=== PATIENT | female | born 1940 | race Caucasian/White ===

== ENCOUNTER 2022-03-02 13:48 | Outpatient (CLI) | payer MEDICARE, OTHER, SELFPAY ==
[2022-03-02 17:47] LABS: Hemoglobin A1C 5.7 % (<5.7)
[2022-03-02 19:05] LABS: Vitamin D 25 Hydroxy 60.9 ng/mL
[2022-03-05 12:12] LABS: Triiodothyronine T3 Free 2.2 pg/mL (2.3-4.2)
== END 2022-03-02 13:49 | disposition home or self-care (01) ==
LOC: ANHWCLAB 13:52
PROVIDERS: PCP Family Medicine; Visit Provider Internal Medicine Endocrinology, Diabetes & Metabolism
DX: E04.9 Nontoxic goiter, unspecified (principal); M85.80 Other specified disorders of bone density and structure, unspecified site; R79.89 Other specified abnormal findings of blood chemistry; R73.03 Prediabetes
CPT/HCPCS: 36415; 82306; 83036; 84439; 84443; 84481

== ENCOUNTER 2025-03-31 09:55 | Outpatient (CLI) | payer MEDICARE, OTHER, SELFPAY ==
--- NOTE | ~2025-03-31 | XR_ITS ---
EXAMINATION: XR lg joint inject/asp w image DATE: 03/31/2025 11:39 INDICATION: Right hip pain TECHNIQUE: A time-out was performed to verify the patient's name, date of , and procedure to b e performed. The procedure including the risks, benefits, and alternatives was discussed with the pat ient. Risks discussed included bleeding and infection. The patient understood the risks and agreed to proceed. The skin overlying the right joint was prepped and draped in usual sterile fashion. Anest hetic was administered with 1% lidocaine subcutaneously. A 22 G needle was advanced under fluoroscop ic guidance into the joint. Injection of 1 mL of Omnipaque 240 confirmed intra-articular position of the needle. Subsequently, injectate consisting of 5 mm a 3:2 mixture of 1% lidocaine: 40 mg/mL Alba log for a total dose of 80 mg Kenalog was instilled. Washout of contrast was seen confirming intra-ar ticular administration. The needle was removed and the entry site was cleaned and dressed. There wer e no immediate complications. Fluoroscopy exposure time was 0.2 minutes. The total number of images w as 1. Total DAP was 0.8 Gycm^2. FINDINGS: Real-time fluoroscopy demonstrates the needle in the right hip joint. Patient's pain prior to procedure:08/05. Patient's pain following the procedure: 04/04. IMPRESSION: 1. Successful right hip joint injection of local anesthetic and steroid with decrease in the patient' s presenting pain. Reviewed, dictated and finalized at location A. IMPRESSION: 1. Successful right hip joint injection of local anesthetic and steroid with de crease in the patient's presenting pain.
--- OUTSIDE RECORDS SUMMARY | 2025-03-31 10:44 | XMS_ITS | Clinical Summary ---
Author Organization [email or web address] Address [address] 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,non-owned Affiliates and Associated Physician Practices is amultiple site organization consisting of ambulatory clinics and hospital sitesin [place], [place], [place] and [place]. This disclosure is being madepursuant to the Care Everywhere program and may not contain all information available regarding this patient. Last updated 18.[email or web address] Allergies Active Allergy Reactions Criticality Noted Date Comments Codeine Itching Low 03/04/2013 Procaine Itching Low 03/04/2013 Family History Medical History Relation Name Comments Cancer Brother 1 bladder; Status : None Known Brother 2 Status: Alive Emphysema Father Status: d Heart Disease Mother Status: Deceas ed Hypertension Mother Relation Name Status Comments Brother 1 Brother 2 Father Mother Social History Tobacco Use Types Packs/Day Years Used Date Smoking Tobacco: Never Smokeless Tobacco: Never Alcohol Use Standard Drinks/Week Comments No 0 (1 standard drink = 0.6 oz pur e alcohol) AUDIT-C Answer Date Recorded Q1: How often do you have a drink containing alc ohol? 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 Gender Identity Not on file Sexual Orientation Not on file Last Filed Vital Signs Vital Sign Reading Time Taken Comments Blood Pressure 138/121 01/27/2022 7:18 PM AGRICULTURAL EQUIPMENT OPERATOR Pulse 87 01/27/2022 7:18 PM AGRICULTURAL EQUIPMENT OPERATOR Temperature 36.9 C (98.5 F) 01/27/2022 7:18 PM AGRICULTURAL EQUIPMENT OPERATOR Respiratory Rate 18 01/27/2022 7:18 PM AGRICULTURAL EQUIPMENT OPERATOR Oxygen Saturation 95% 01/27/2022 7:18 PM AGRICULTURAL EQUIPMENT OPERATOR Inhaled Oxygen Concentration - - Weight 86.6 kg (191 lb) 01/27/2022 7:18 PM AGRICULTURAL EQUIPMENT OPERATOR Height 167.6 cm (5' 6 ) 01/27/2022 7:18 PM AGRICULTURAL EQUIPMENT OPERATOR Body Mass Index 30.83 01/27/2022 7:18 PM AGRICULTURAL EQUIPMENT OPERATOR Plan of Treatment Health Maintenance Due Date Last Done Comments BONE DENSITY TESTING 1940 DTAP/TDAP/TD VACCINES (1 - Tdap) 1959 PNEUMOCOCCAL VACCINE 50+ (1 of 1 - PCV) 1990 ZOSTER VACCINE (1 of 2) 1990 Respiratory Syncytial Virus (RSV) Vaccine Pt: or over 60 yrs (1 - 1-dose 75+ series) 2015 COVID-19 VACCINE ( - 2023-2 5 season) 2024 01/20/2021, 12/23/2020 DEPRESSION SCREENING 11/26/2024 INFLUENZA VACCINE (Season Ended) 2025 09/09/2017, 09/20/2016 HEPATITIS B VACCINE Aged Out No longe r eligible based on patient's age to complete this topic HIB VACCINE Aged Out No longer eligi ble based on patient's age to complete this topic HPV VACCINE Aged Out No longer eligi ble based on patient's age to complete this topic MENINGOCOCCAL (Group B) VACCINE SHARED DECISION-MAKING Aged Out No longer eligible based on patient's age to complete this topic MENINGOCOCCAL GROUPS A/C/Y/W VACCINE Aged Out No longer eligible b ased on patient's age to complete this topic Insurance MEDICARE [facility] MEDICARE [employer] Care Teams 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
--- OUTSIDE RECORDS SUMMARY | 2025-03-31 10:44 | XMS_ITS | Data Portability ---
Author Organization [facility] Address [address] [place] [id number] Assessment No assessment recorded. Plan of Treatment Reminders Order Date Submit Date Provider Last Modified By Organization Details Last Modified Time Details Appointments None recorded. Lab rapid flu (A+B) 2024 [facility] [place] [address], [address] [place] [address], [phone], 5 13:55:53 urinalysis , dipstick [address], [address] [place] [address], [place], [address], 5 13:55:53 infectious disease panel 2024 025 [email or web address] [facility], [address], [place], [address], 13:57:59 rapid SARS CoV 2 Ag, QL IA, respirator y specimen 2024 [address] [facility] [place] [address], [address] [place] [address], [phone], 5 13:55:53 rsv (respirato ry syncytial virus), rapid, nasopharyn geal [address], [address], [address], 13:55:53 Referral None recorded. Procedures None recorded. Surgeries None recorded. Imaging None recorded. Medication Orders ondansetro n 4 mg disintegra ting tablet 2024 025 [id number], [address] [place], [address], 14:01:53 Macrobid 100 mg capsule 2024 025 [id number], [address] [place], [address], 14:01:52 Patient TargetsNo targets recorded. Patient Instructions Encounter Date Encounter Id Patient Instructions Last Modified By Organization Details Last Modified Time 03/16/2025 [id number] nausea and vomiting: care instructions [email or web address] Not available 03/16/2025 13:55:53 Discharge Instructions [email or web address] Not available 03/16/2025 13:55:52 cough: care instructions [email or web address] Not available 03/16/2025 13:55:53 dizziness: care instructions [email or web address] Not available 03/16/2025 13:55:53 Stay well hydrat ed and take medications as prescribed; go to ER for worsening dizziness or uncontrollable nausea/vomiting as this may indicate that you need labs and imaging [email or web address] Not available 03/16/2025 13:55:42 Reason for Referral None Reported. Results Created Date Observation Date Name Description Value Unit Range Abnormal Flag Note LastModifiedBy Organization Detail LastModifiedTime 03/16/2003/16/2025 urina lysis , dipst ick Glucose Negati [place] [address], [address], 03/16/2025 13:51:56 03/16/20 25 03/16/2025 urina lysis , dipst ick Bilirubin +1 (1.0mg /dL) [place] [address] [place], [address], 03/16/2025 13:51:56 03/16/20 25 03/16/2025 urina lysis , dipst ick Ketone Negati ve [place] [address] [address], [place], [address], 03/16/2025 13:51:56 03/16/20 25 03/16/2025 urina lysis , dipst ick Specific Percy 1.015 Not Available [facility] [address] [address], [place], [address], 03/16/2025 13:51:56 03/16/20 25 03/16/2025 urina lysis , dipst ick Blood Negati ve [place] [address] [address] [address], [place], [address], 03/16/2025 13:51:56 03/16/20 25 03/16/2025 urina lysis , dipst ick pH 6.0 Not Available [facility] [address] [address], [place], [address], 03/16/2025 13:51:56 03/16/20 25 03/16/2025 urina lysis , dipst ick Protein Negati ve [place] [address] [address] [address], [place], [address], 03/16/2025 13:51:56 03/16/20 25 03/16/2025 urina lysis , dipst ick Urobilinogen Negati ve (0.2mg /dL) Not [place] [facility] [place] [address] [address], [place], [address], 03/16/2025 13:51:56 03/16/20 25 03/16/2025 urina lysis , dipst ick Nitrites Negati ve [place] [facility] [place] [address] [facility] [address], [place], [address], 03/16/2025 13:51:56 03/16/20 25 03/16/2025 urina lysis , dipst ick Leukocytes Trace (15 Bryan/uL ) Not [place] [facility] [place] [address] [address] [address], [place], [address], 03/16/2025 13:51:56 03/16/20 25 03/16/2025 urina lysis , dipst ick Color Towner Not Available [facility] [address] [address], [place], [address], 03/16/2025 13:51:56 03/16/20 25 03/16/2025 urina lysis , dipst ick Clarity Slight y Cloudy [place] [facility] [place] [address] [address] [address], [place], [address], 03/16/2025 13:51:56 03/16/20 25 03/16/2025 rsv (resp irato ry syncy tial virus ), rapid , nasop haryn geal RSV, rapid negati ve [place] [facility] [place] [address] [address] [address], [place], [address], 03/16/2025 13:52:17 03/16/20 25 03/16/2025 rapid SARS CoV 2 Ag, QL IA, respi rator y speci men Rapid SARS Antigen negati ve [place] [facility] [place] [address] [address] [address], [place], [address], 03/16/2025 13:52:14 03/16/20 25 03/16/2025 rapid flu (A+B) Flu A negati ve [place] [facility] [place] [address] [address] [address], [place], [address], 03/16/2025 13:52:11 03/16/20 25 03/16/2025 rapid flu (A+B) Flu B negati ve [place] [facility] [place] [address] [facility] [address], [place], [address], 03/16/2025 13:52:11 Result Notes None recorded. Problems Name Problem SNOMED Code Status Onset Date Resolution Date Notes Provider Name and Address Organization Details Recorded Time Nausea 731011734 Active [facility] 5 13:28:24 Vomiting 634357396 Active [facility] 13:28:30 Cough 90413716 Active [address] [place], [place] [address] [facility] 13:28:40 Problem Notes None recorded. Medical Equipment None Reported. Allergies Allergen ID Allergen Name Allergen Category Reaction Reaction Severity Criticality Documentation Date Start Date Code Code System Note Provider Name and Address Organization Details Recorded Time 26310 procaine hydrochlo ride medicatio n Not available Not available Not available 03/16/2025 08189 8 [facility] 13:28:03 61447 lidocaine medicatio n Not available Not available Not available 03/16/2025 6387 RxNorm [facility] 13:28:08 Medications Name Sig Start Date Stop Date Status Note LastModified by Organization Details LastModified Time benzonatate 200 mg capsule TAKE 1 CAPSULE BY MOUTH THREE TIMES A DAY NEEDED ( NOTE SAYS TO CANCEL?) active Not Available Not Available No t Available pyridoxine (vitamin B6) 25 mg tablet Take by oral route. active Not Available Not Available Not Available sulfamethoxa zole 800 mg-trimethop rim 160 mg tablet TAKE 1 TABLET BY MOUTH EVERY 12 HOURS FOR 10 DAYS active Not Available Not Available Not Available pantoprazole 40 mg tablet,delay ed release Take 1 tablet every day by oral route. active Not Available Not Available No t Available levofloxacin 500 mg tablet TAKE 1 TABLET BY MOUTH EVERY 24 HOURS FOR 7 DAYS active Not Available Not Available N ot Available ondansetron 4 mg disintegrati ng tablet PLACE 1 TABLET BY TRANSLINGUA L ROUTE EVERY 6 TO 8 HOURS NEEDED active Not Available Not Available No t Available metaxalone 800 mg tablet Take 1 tablet 3 times a day by oral route. active Not Available Not Available No t Available nitrofuranto in monohydrate/ macrocrystal s 100 mg capsule TAKE 1 CAPSULE BY MOUTH EVERY 12 HOURS FOR 5 DAYS active Not Available Not Available N ot Available acetaminophe n active Not Available Not Available Not Available aspirin active Not Available Not Avail able Not Available anastrozole active Not Available Not A vailable Not Available calcium active Not Available Not Avail able Not Available amlodipine active Not Available Not Av ailable Not Available Vitamin D3 active Not Available Not Av ailable Not Available Multi Vitamin active Not Available Not Available Not Available Vitals Date Recorded Heart rate Respiratory rate Oxygen saturation Oxygen saturation in Arterial blood by Pulse oximetry Body temperature Body height Body weight Systolic blood pressure Diastolic blood pressure Provider Name and Address Organization Details Last Updated DateTime 5 101 /min 20 /min 97 % 97 % 98.1 [degF] 167.64 cm 98979.3 7 g 142 mm[Hg] 89 mm[Hg] [facility] 5 13:27:06 Social History Question Answer Notes LastModified by Organizat ion Details LastModified Time Tobacco Smoking Status Never Smoker [facility] 03/16/2025 13:28:49 In The 14 Days Before Symptom Onset, Have You Had Close Contact With A Laboratory-confirm ed COVID-19 While That Case Was Ill? No [email or web address] Information n ot available 03/16/2025 In The 14 Days Before Symptom Onset, Have You Had Close Contact With A Person Who Is Under Investigation For COVID-19 While That Person Was Ill? No Information not available 03/16/2025 Have You Been To An Area Known To Be High Risk For COVID-19? No [email or web address] Information not available 03/16/2025 Alcohol Use None [email or web address] Information n ot available 03/16/2025 Do You Or Have You Ever Used Any Nicotine-free Cigarettes, Vape, Or Chewing Tobacco? No Information not available 03/16/2025 Are You Passively Exposed To Smoke? No [email or web address] Information no t available 03/16/2025 Has Tobacco Cessation Counseling Been Provided? No [email or web address] Information not available 03/16/2025 Do You Or Have You Ever Used Any Other Forms Of Tobacco Or Nicotine? No [email or web address] Information not available 03/16/2025 Sex: Unknown Functional Status None recorded. Mental Status None recorded. Family History Nothing Reported. Medical History No medical history recorded. Gynecological HistoryNo gynecological history recorded. Obstetrics History GPAL:G 0 P 0 0 0 0 Past Encounters Encounter ID Performer Location Encounter Start Date Encounter Closed Date Diagnosis/Indication Diagnosis SNOMED-CT Code Diagnosis ICD10 Code Diagnosis Note [id number] CONSUELO MORGAN NP [facility] [address] [place] [address] [address] [place] [address] 03/16/2025 13:08:15 03/18/2025 11:53:19 Acute urinary tract infection 785002498 N39.0 Cough 92031252 R05.1 Nausea and vomiting 1693 1999 R11.2 Dizziness 887198814 R42 Health Concerns Section Related Observation LastModified by Organization Detai ls LastModified Time None Recorded Concern Status LastModified by Organization Details LastModified Time None Recorded Advance Directives Directive None Recorded Payers Encounter Date Sequence Insurance Name Policy Number Policy [place] Covered Member ID [place] Member ID Guarantor Name 03/16/2025 1 MEDICARE-[place] (MEDICARE) Qi Arvizu [id number] Qi Arvizu 03/16/2025 2 [employer] - CHOICE (POS II) [id number] Qi Arvizu [id number] Qi Arvizu Notes Date Note Type Note Provider Name and Address Organization Details Recorded Time 03/16/2025 text/html CoughReported bypatient.Severity:mil d Onset/Duration:2 day(s) ago Timing:episodic; intermittent Context:non-smoker Associated Symptoms:no fever; no chills; no chest pain; no heartburn; no edema; no agitation; no wheezing; no post nasal drip;nausea;vomitingNa usea VomitingReported bypatient.Quality:not changing Severity:mild Onset/Duration:1 day(s) ago Timing:episodic; intermittent Context:no one else with similar symptoms;recent travel Associated Symptoms:no abdominal pain; no excess gas; no fever; no chills; no rash; no weight loss; no decreased appetite; no diarrhea; no dry heaves; no heartburn; no hematuria; no hematochezia; no mucus in stool; no melena; no weakness; no fatigue;frequent coughing;headache;naus ea CONSUELO MORGAN, EXTERMINATOR [employer] [address], [place], [address], [facility], [facility] 03/16/2025 14:01:51 OBGyn Episode No OBEpisode recorded.
--- OUTSIDE RECORDS SUMMARY | 2025-03-31 10:45 | XMS_ITS | Data Portability ---
Author Organization [place] - [facility], Main Office Address [address] [place] [address] Care Team Providers Care Marketing Co Op Name Role Phone NIKA ARIZMENDI Primary Care Provider [phone] JONO BARRAZA Referring Provider [phone] NIKA ARIZMENDI Referring Provider [phone] Assessment Encounter Date Assessment Date Assessment LastModified by Organization Details LastModified Time 04/27/2023 04/27/2023 Impression: Omaira ent has moderate to moderately severe lateral compartment osteoarthritis in the right knee without significant valgus deformity. I have discussed options with her. The surgical option would be total knee replacement. With her joint space narrowing to 2 mm on the PA flexion start view, it is unlikely that arthroscopic debridement of degenerative tearing of lateral meniscus would be beneficial. Nonsurgical treatment options would include trying another cortisone shot. I discussed her that 90 percents of cortisone shots given by orthopedic surgeons are intra-articular but that means that 10% fail to be intra-articular and since she had no relief even temporary relief it might be reasonable to try 1 more shot as after aspiration of the effusion to ensure intra-articular placement and she would like to try that. Risks of side effects including risk of infection were discussed. After ChloraPrep prep, a 22 gauge needle was inserted through a lateral parapatellar approach and 3 cc of clear light yellow fluid were aspirated and 20 mg of Kenalog and 4 cc of 0.5% ropivacaine were injected without difficulty. Other nonsurgical treatment strategies that are helpful would include use of a cane in the left hand, weight loss by decreasing her daily caloric intake a little bit avoiding desserts and sweets for example and physical therapy can be helpful. If she feels her symptoms are intolerable and severe and unresponsive to nonoperative measures, total knee replacement would be an option for her. She may find that knee replacement is associated rather severe pain after surgery and the pain after surgery more intense than she would Have expected. Her symptoms are more severe than what 1 would expect with her still having 2 and 3.2 mm of joint space on the PA flexion and AP start views respectively and she may be more sensitive to pain than on average. Few minutes after the injection she got up and walked around and had dramatic resolution of her symptoms in the right knee which was encouraging. After that though she informed me that with the last injection she had immediate improvement of the symptoms but by the evening improvement had disappeared and there is no further improvement after that. Will see how she does this time. I will see her back in 6 weeks assess her progress. If she does not notice significant improvement after 1 week, it would be reasonable to have her try cane and try physical therapy as well. 45 minutes were spent in total care this patient more than half the time spent in blzv-es-upof care. Patient is with daughter was present during the evaluation and discussion. Not available 04/29/2023 18:04:05 06/08/2023 06/08/2023 patient returns. She is here for follow-up of her right knee. We gave her cortisone shot 6 weeks ago to the right knee. The shot helped for about 10 days. She recently took a Medrol Dosepak for her thumb and that helped her knee temporarily as well. However she continues to have a lot of problems with pain in the right knee. She states she had a fractured tibia and a torn meniscus in the right knee 40 years ago. She has undergone arthroscopic meniscal debridement in the left knee 15 years ago and this worked well for her. She wonders whether arthroscopic meniscal debridement in the right knee would be helpful. Her previous Stork view x-rays demonstrated narrowing of lateral compartment joint space to approximately 2 mm on the PA flexion Stork view. On the AP view, the lateral compartment joint spaces 3 mm. She has chondrocalcinosis present. I think there is moderate patellofemoral arthritis suggested on the lateral x-ray view and sunrise view. On exam today she had full range of motion of her right hip . With external rotation of the right hip she felt some soreness over the lateral aspect of the right hip over the greater trochanter and did have 5/10 trochanteric tenderness. Her right knee has range of motion 3-140 degrees. No effusion. There is moderately severe pain with patellofemoral grind moderate lateral joint line tenderness and pain laterally with Earl's testing. I have reviewed with her that unfortunately, the results of arthroscopic debridement of a degenerative meniscal tear are poor with the joint space is narrowed to less than 3 mm which it is in this case on the PA flexion view. Her arthritis is not severe enough I believe to consider a knee replacement at this stage. She would like to obtain MRI scan to assess the status of the lateral meniscus and see if arthroscopic debridement would be an option. If she does not have high-grade subchondral bone marrow edema in the lateral compartment than I think it might be an option to consider with the understanding that the likelihood of excellent improvement of symptoms is poor. This was thoroughly discussed with her. We will obtain the MRI scan and I will see her back after the test. 30 minutes were spent in total care this patient more than half the time spent in [id number]-ev-ikhm care. Not available 06/23/2023 09:12:34 06/25/2023 06/25/2023 Patient returns after MRI scan. I reviewed the radiologist's report and the images. Radiologist did this scan of the right knee in January 2018 the which I do not for review. It shows degenerative tear horizontal cleavage type posterior horn and mid body of medial meniscus that appeared similar to MRI in 2018. It shows progressive truncation of the body and posterior horn lateral meniscus reflective of degenerative tearing and of course the high-grade cartilage loss lateral femoral condyle lateral tibial plateau. There is no obvious unstable flap or any abnormality that would predict mechanical symptoms and therefore I do not feel that arthroscopic surgery would be of any benefit to her. I was a little bit surprised that she did not have significant bone marrow edema but that is the case. Impression: Patient has moderately severe lateral compartment osteoarthritis and right knee. I discussed options with her. She does not have noxj-wc-bzwn degenerative change at this point. She is aware the option of knee replacement surgery and is considering that but would like to exhaust non operative measures. She has had cortisone shots. She thinks she had a series of 3 injections probably the viscosupplementation injection several years ago. She has been going to physical therapy and she feels that aggravates her symptoms. Chief complaint is lateral joint line pain. We talked about the option of trying viscosupplementation again I have suggested the single shot Monovisc injection. She would like to try that if that does not help she feels she would rather proceed with knee replacement surgery then continue living with her symptoms. She has for a small prescription of [place] tablets if she is having severe pain that limits her ability to be out in about if she has made some plans. We have to get insurance authorization for Monovisc and we will call her once this has been approved. 20 minutes were spent in total care this patient more than half of this time spent in inpl-va-chot care. Not available 06/25/2023 17:21:00 08/29/2023 08/29/2023 HPI: Patient ret urns. She is here for Monovisc injection into the right knee. We get prior authorization from her insurance. Again she has moderate lateral compartment osteoarthritis in the knee. Physical exam: 83-year-old female alert pleasant. She has mild effusion right knee. Range of motion is from 7-130 degrees. Xwhu-mo-jwpqpems tenderness over the lateral joint line to palpation. Minimal tenderness over the medial joint line to palpation. After ChloraPrep was used on skin Monovisc injection was given into the right knee without incident. Impression: 83-year-old female who has moderate lateral compartment osteoarthritis of the right knee. Cortisone injection did not give her satisfactory improvement and she wished to try viscosupplementation injections. I advised her that it will take up to 4-6 weeks for maximal improvement from viscosupplementation injections. Likes her back in 5 weeks for re-evaluation. [email or web address] Not available 08/29/2023 16:16:26 10/08/2023 10/08/2023 patient returns. She had a Monovisc injection in her right knee 5 weeks ago. She went to [place] 3 weeks ago and did a lot of walking there for 7 days and had swelling and pain in the right knee but since coming back and resting the knee seems to doing better. On exam she has full range of motion right knee and no palpable effusion today. Stork view x-rays from 04/27/2023 showed narrowing of lateral compartment joint space to 2 mm on the PA flexion view 3 mm in the AP view. I will see her back for her right knee in 2 months to assess her progress. If her right knee is problematic again for her she could have a cortisone shot at that time. She asked about a cortisone shot in her trochanteric bursa of the right hip. She has had [address] Barraza . She is not sure when that was. She has been using a cane in the right hand. I talked her about trying physical therapy for trochanteric pain syndrome the right hip. She does have moderately severe tenderness over the trochanteric bursa today. She walks without limp. She like to try course of physical therapy and they will teach her how to use a cane in the left hand which will be helpful and I have recommended that she work hard on losing a little bit of weight which can be helpful. When I see her back in 2 months if she is still having symptoms in the right hip and she would like this to be fully evaluated we obtain x-rays of the right hip and pelvis. She would like to wait on those for today. 20 minutes were spent total care this patient more than half this time spent in ietb-zg-wkzv care. Not available 10/08/2023 14:28:57 Plan of Treatment Reminders Order Date Submit Date Provider Last Modified By Organization Details Last Modified Time Details Appointments None recorded. Lab None recorded. Referral None recorded. Procedures knee aspiration/ injection (PROC) 2022 023 [email or web address] In-Office Order, Internal Use Only DO Not Attach Compendium DO Not Attach Compendium, Do Not Delete/merge, [id number] 15:05:28 injection/a spiration joint/bursa (PROC) - in office procedure, administere d by provider 2022 023 [email or web address] In-Office Order, Internal Use Only DO Not Attach Compendium DO Not Attach Compendium, Do Not Delete/merge, [id number] 11:57:13 Surgeries None recorded. Imaging XR, knee 2022 023 [email or web address] [facility] [place], [facility], [place], [address], 3 09:40:32 Medication Orders Monovisc 88 mg/4 mL intra-artic ular syringe 2022 023 [email or web address] [id number], [address] [place], [place], [id number], 3 16:17:10 Kenalog 10 mg/mL suspension for injection 2022 023 [id number], [address], [place], [id number], 3 13:58:11 ropivacaine (PF) 5 mg/mL (0.5 %) injection solution 2022 023 [email or web address] [facility] #[id number], [address], [place], [id number], 3 14:13:01 Patient TargetsNo targets recorded. Patient InstructionsNo instructions recorded. Reason for Referral None Reported. Results Created Date Observation Date Name Description Value Unit Range Abnormal Flag Note LastModifiedBy Organization Detail LastModifiedTime 04/27/20 23 XR, knee No observ ation record ed. [facility] [place] [address], [place], [address], 04/29/2023 17:55:45 06/22/20 23 06/22/2023 MRI, knee, w/o contr ast No observ ation record ed. [facility] [address] [place], [address], 06/25/2023 11:48:27 Result Notes None recorded. 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 Active Not Available [facility] 3 08:09:28 Closed fracture of upper end of tibia 59212670 Active Not Available [facility] 3 08:09:28 Labyrinthi tis 76372648 Active Not Available [facility] 3 08:09:29 Degenerati on of lumbar interverte bral disc 10385294 Active Not Available [facility] 3 08:09:29 Menopause finding 493548395 Active Not Available [facility] 3 08:09:29 Low back pain 600048408 Active Not Available [facility] 3 08:09:29 Low back strain 817074076 Active Not Available [facility] 3 08:09:29 Current tear of medial cartilage AND/OR meniscus of knee Active Not Available [facility] 3 08:09:29 Knee pain Active Not Available [facility] 3 08:09:29 Localized osteoarthr osis 33132440 Active Not Available [facility] 3 08:09:29 Depressive disorder 97411625 Active Not Available [facility] 3 08:09:29 Sinusitis 71723555 Active Not Available [facility] 3 08:09:29 Goiter 5921844 Active Not Available [facility] 3 08:09:29 Herpes simplex type 1 infection 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 Active Not Available [facility] 3 08:09:29 Fracture of lower leg 295518610 Active Not Available [facility] 3 08:09:29 Cramp in limb 860336386 Active Not Available [facility] 3 08:09:29 Anxiety 03851540 Active Not Available [facility] 3 08:09:29 Cervical radiculopa thy 41546999 Active Not Available [facility] 3 08:09:30 Hyperlipid emia 75690101 Active Not Available [facility] 3 08:09:30 Essential hypertensi on 68692162 Active Not Available [facility] 3 08:09:30 Posterior rhinorrhea 42095874 Active Not Available [facility] 3 08:09:30 Hyperglyce kaylynn 87701149 Active Not Available [facility] 3 08:09:30 Pain of right knee joint 8160812765997 00 Active 2022 Toshia Isai RMA null, [place] [facility] 3 10:44:04 Osteoarthr itis of left knee joint 7336199760565 09 Active 2022 Toshia Alex RMA null, [place] [facility] 3 15:02:47 Osteoarthr itis of right knee joint 9205984286771 00 Active 2022 Toshia Isai RMA null, [place] [facility] 3 14:15:00 Trochanter ic bursitis of right hip 5897050594780 00 Active 2022 Josey Soriano, MONOGRAM OPERATOR null, [place] [facility] 3 17:31:30 Problem Notes None recorded. Procedures Surgical History Date Name Laterality Status Provider Name and Address Organization Details Recorded Time Back Surgery completed Toshia Alex DENNISA [place] [facility] 04/27/2023 10:41:51 Breast Surgery completed Toshia Alex RMA [place] [facility] 04/27/2023 10:42:03 Ankle Surgery completed Toshiachelsey Alex RMA [place] [facility] 04/27/2023 10:42:11 Imaging Results Imaging Date Name Status LastModified by [facility] Details LastModified Time 04/27/2023 XR, knee completed [facility] [place] [address], [place], [address], 04/29/2023 17:55:45 06/22/2023 MRI, knee, w/o contrast completed [email or web address] [facility] [address] [place], [address], 06/25/2023 11:48:27 Procedure Notes None recorded. Medical Equipment None Reported. Allergies Allergen ID Allergen Name Allergen Category Reaction Reaction Severity Criticality Documentation Date Start Date Code Code System Note Provider Name and Address Organization Details Recorded Time 00613 procaine hydrochlo ride medicatio n other Not available Not available 01/24/2023 80120 8 RxNorm WATER BLIST ERS IN MOUTH Not Available [facility] 3 08:13:13 61016 codeine medicatio n nausea Not available Not available 01/24/2023 2670 RxNorm HEART RACES Not Available [facility] 3 08:13:13 Medications Name Sig Start Date Stop Date Status Note LastModified by Organization Details LastModified Time cyclobenzap rine 10 mg tablet 09/28 completed Not Available Not Available Not Available amoxicillin 500 mg capsule 04/27 completed Not Available Not Available Not Available anastrozole 1 mg tablet active Not Available Not Available Not Available Xanax 0.5 mg tablet Take 1 tablet 3 times a day by oral route as needed for 30 days. 09/28 completed Not Available Not Available Not Available prednisone 10 mg tablet Take by oral route take 3 tabs for 2 days then 2 tabs for 2 days then 1 tab for 2 days . active Not Available Not Available No t Available venlafaxine ER 75 mg capsule,ext ended release 24 hr active Not Available Not Available Not Available azithromyci n 250 mg tablet Take 2 TABLET EVERY DAY by oral route for 1 day then take 1 daily for 4 days active Not Available Not Available No t Available ibuprofen 800 mg tablet 09/28 completed Not Available Not Available Not Available benzonatate 200 mg capsule active Not Available Not Available Not Available hydrocodone 5 mg-acetamin ophen 325 mg tablet TAKE 1 TABLET PO Q 4HR PRN SEVERE PAIN active Not Available Not Available No t Available meloxicam 15 mg tablet Take 1 tablet every day by oral route for 30 days. 03/09 completed Not Available Not Available Not Available metronidazo le 0.75 % (37.5 mg/5 gram) vaginal gel active Not Available Not Available Not Available prednisone 20 mg tablet active Not Available Not Available Not Available alendronate 70 mg tablet active Not Available Not Available Not Available Anucort-HC 25 mg suppository Insert one supposito ry rectally as needed 09/28 completed Not Available Not Available Not Available potassium chloride ER 10 mEq tablet,exte nded release Take 1 tablet every day by oral route as directed for 90 days. active Not Available Not Available No t Available amlodipine 5 mg tablet Take 1 tablet every day by oral route for 30 days. active Not Available Not Available No t Available acyclovir 400 mg tablet active Not Available Not Available Not Available ciprofloxac in 500 mg tablet active Not Available Not Available Not Available hydrocodone 10 mg-acetamin ophen 325 mg tablet TAKE 1 TO 2 TABLETS BY MOUTH EVERY 5 HOURS NEEDED FOR PAIN 06/08 completed Not Available Not Available Not Available aspirin 81 mg tablet,khoa yed release Take 1 tablet every day by oral route as directed. 09/28 completed Not Available Not Available Not Available tramadol 50 mg tablet TAKE 1 TABLET BY MOUTH EVERY 8 HOURS NEEDED FOR PAIN 09/28 completed Not Available Not Available Not Available spironolact one 25 mg tablet 04/27 completed Not Available Not Available Not Available Kenalog 40 mg/mL suspension for injection active Not Available Not Available No t Available meloxicam 7.5 mg tablet TAKE 1 TABLET BY MOUTH EVERY DAY WITH FOOD 09/28 completed Not Available Not Available Not Available amoxicillin 875 mg tablet active Not Available Not Available Not Available alprazolam 0.25 mg tablet Take 1 tablet 3 times a day by oral route for 10 days. active Not Available Not Available No t Available methocarbam ol 750 mg tablet TAKE 1 TABLET BY MOUTH 4 TIMES A DAY NEEDED 09/28 completed Not Available Not Available Not Available Kenalog 10 mg/mL suspension for injection in office procedure , administe red by provider [address] [facility]: [phone] Not Available Not Available Not Available meclizine 25 mg tablet 04/27 completed Not Available Not Available Not Available amlodipine 10 mg tablet 1 PO DAILY 09/28 completed Not Available Not Available Not Available hydrocodone 7.5 mg-acetamin ophen 325 mg tablet Take by oral route for 3 days. 09/28 completed PRN Not Available Not Available Not Available pantoprazol e 40 mg tablet,khoa yed release active Not Available Not Available Not Available ranitidine 150 mg tablet 09/28 completed Not Available Not Available Not Available ibuprofen 400 mg tablet 09/14 completed Not Available Not Available Not Available hydrochloro thiazide 12.5 mg capsule Take 1 capsule every day by oral route for 90 days. 09/28 completed Not Available Not Available Not Available nystatin-tr iamcinolone 100,000 unit/g-0.1 % topical cream active Not Available Not Available Not Available gabapentin 300 mg capsule 09/28 completed Not Available Not Available Not Available etodolac 400 mg tablet active Not Available Not Available Not Available hydrocodone 5 mg-acetamin ophen 500 mg tablet active Not Available Not Available No t Available hydrochloro thiazide 25 mg tablet 04/27 completed Not Available Not Available Not Available furosemide 20 mg tablet active Not Available Not Available Not Available gabapentin 100 mg capsule TAKE ONE CAPSULE BY MOUTH 3 TIMES A DAY 09/28 completed Not Available Not Available Not Available lovastatin 20 mg tablet Take 1 tablet every day by oral route at bedtime for 90 days. active Not Available Not Available No t Available methylpredn isolone 4 mg tablets in a dose pack Take by oral route. DIRECTED PER PACK 06/25 completed Not Available Not Available Not Available ondansetron 4 mg disintegrat ing tablet active Not Available Not Available N ot Available Zovirax 5 % topical ointment APPLY TO THE AFFECTED AREA(S) BY TOPICAL ROUTE EVERY 3 HOURS 6 TIMES PER DAY 09/14 completed Not Available Not Available Not Available sertraline 50 mg tablet active Not Available Not Available Not Available doxycycline hyclate 100 mg tablet 09/28 completed Not Available Not Available Not Available spironolact one 50 mg tablet active Not Available Not Available Not Available amoxicillin 875 mg-potassiu m clavulanate 125 mg tablet Take 1 tablet every 12 hours by oral route for 10 days. 04/27 completed Not Available Not Available Not Available oxycodone 5 mg tablet 04/27 completed Not Available Not Available Not Available escitalopra m 10 mg tablet TAKE ONE TABLET BY MOUTH ONCE DAILY DIRECTED 09/28 completed Not Available Not Available Not Available escitalopra m 20 mg tablet TAKE 1 & 1/2 TABLETS BY MOUTH IN THE MORNING active Not Available Not Available No t Available metaxalone 800 mg tablet active Not Available Not Available Not Available cyclobenzap rine 5 mg tablet Take 1 tablet 3 times a day by oral route as needed. active Not Available Not Available No t Available Vigamox 0.5 % eye drops active Not Available Not Available Not Available Klor-Con M10 mEq tablet,exte nded release Take 1 tablet every day by oral route for 90 days. 09/28 completed Not Available Not Available Not Available bupropion HCl XL 150 mg 24 hr tablet, extended release Take 1 tablet every day by oral route in the morning. active Not Available Not Available No t Available Cymbalta 60 mg capsule,del ayed release active Not Available Not Available Not Available Co Q-10 1 PO QD 09/28 completed Not Available Not Available Not Available vitamin B complex 1 PO QD 09/28 completed Not Available Not Available Not Available potassium 10 MEQ 1 po qd 2013 active Not Available Not Available Not Avai lable multivitami n 1 po qd 09/28 completed Not Available Not Available Not Available ProAir HFA 90 mcg/actuati on aerosol inhaler 09/28 completed Not Available Not Available Not Available hydrochloro thiazide 12.5 mg tablet 09/28 completed Not Available Not Available Not Available Durezol 0.05 % eye drops active Not Available Not Available Not Available Calcium 500 + D (D3) 1 po qd 09/28 completed 600mg Not Available Not Available Not Available Suprep Bowel Prep Kit 17.5 gram-3.13 gram-1.6 gram oral solution active Not Available Not Available Not Available ropivacaine (PF) 5 mg/mL (0.5 %) injection solution in office procedure , administe red by provider 10/08 completed NDC 08990 -064- 01 Not Available Not Available Not Available Ilevro 0.3 % eye drops,suspe nsion active Not Available Not Available Not Available Afluria 5299-5367(P F) 45 mcg (15 mcg x 3)/0.5 mL intramuscul ar syringe TO BE ADMINISTE RED BY PHARMACIS T FOR IMMUNIZAT ION active Not Available Not Available No t Available Monovisc 88 mg/4 mL intra-artic ular syringe in office 2022 active ndc;0 [address] -01 Not Available Not Available Not Available Quick[employer]ue At-Home COVID-19 Test kit 10/08 completed Not Available Not Available Not Available Vitals Date Recorded Body height Body mass index (BMI) Body weight Provider Name and Address Organization Details Last Updated DateTime 04/27/2023 165.1 cm 32 kg/m2 35780.74 g DEYA Lopez [employer] [facility] 04/27/2023 11:03:19 Date Recorded Body height Provider Name an d Address Organization Details Last Updated DateTime 06/08/2023 165.1 cm DEYA Lopez [employer] [facility] [employer] [facility] 06/08/2023 09:51:12 Date Recorded Body height Provider Name an d Address Organization Details Last Updated DateTime 06/25/2023 165.1 cm Toshia Alex Eduardo [employer] [facility] 06/25/2023 15:40:38 Date Recorded Body height Provider Name an d Address Organization Details Last Updated DateTime 08/29/2023 165.1 cm Toshia Alex Eduardo [employer] [facility] 08/29/2023 15:02:08 Date Recorded Body height Provider Name an d Address Organization Details Last Updated DateTime 10/08/2023 165.1 cm Toshia Alex Eduardo [employer] [facility] 10/08/2023 14:12:44 Social History Question Answer Notes LastModified by Organizat ion Details LastModified Time Tobacco Smoking Status Never Smoker DEYA Lopez [facility] 04/27/2023 10:41:39 What Is Your Level Of Alcohol Consumption? None Information not available 04/27/2023 Sex: Unknown Functional Status None recorded. Mental Status None recorded. Family History Relationship Description Onset Age of this Age Resolved Age Notes LastModified by Organization Details LastModified Time Father Heart disease [email or web address] Not available 2022 10:40:33 Mother Heart disease [email or web address] Not available 2022 10:40:33 Mother Family history of stroke [email or web address] Not available 2022 10:40:43 Mother Hypertensive disorder [email or web address] Not available 2022 10:41:09 Brother Family history of malignant neoplasm Not available 2022 10:40:56 Unspecified Relation Diabetes mellitus child [email or web address] Not available 2022 10:41:28 Medical History Condition Response ARTHRITIS Y CANCER: SPECIFY Y Gynecological HistoryNo gynecological history recorded. Obstetrics History GPAL:G 0 P 0 0 0 0 Immunizations Vaccine Type Date Status Note Provider Nam e and Address Organization Details Recorded Time Influenza, split virus, trivalent, preservative 3 completed Not Available [facility] 01/24/2023 08:13:05 Tdap 0 completed Not Available [facility] 01/24/2023 08:13:05 Pneumococcal Conjugate, unspecified formulation 5 completed Not Available [facility] 01/24/2023 08:13:06 Influenza, split virus, trivalent, preservative 4 completed Not Available [facility] 01/24/2023 08:13:06 Pneumococcal conjugate PCV 13 5 completed Not Available [facility] 01/24/2023 08:13:06 Influenza, split virus, trivalent, preservative 5 completed Not Available [facility] 01/24/2023 08:13:06 Past Encounters Encounter ID Performer Location Encounter Start Date Encounter Closed Date Diagnosis/Indication Diagnosis SNOMED-CT Code Diagnosis ICD10 Code Diagnosis Note [id number] Matt Hernández MD [facility] [address] [place] [address] 04/27/2023 10:00:21 04/30/2023 09:40:32 Pain of right knee joint [id number] 37725 M25.561 [id number] Matt Hernández MD [facility] [address] [place] [address] 06/08/2023 09:43:27 06/25/2023 09:47:39 Pain of right knee joint [id number] 00387 M25.561 [id number] Matt Hernández MD [facility] [address] [place] [address] 06/25/2023 15:38:00 06/25/2023 17:23:56 Pain of right knee joint [id number] 74088 M25.100 [id number] Matt Hernández MD [facility] [address] [place] [address] 08/29/2023 14:58:50 08/29/2023 16:31:58 Osteoarthritis of left knee joint [id number] 55186 M17.12 [id number] MD [facility] [address] [place] [address] 10/08/2023 14:08:01 10/08/2023 14:37:01 Osteoarthritis of right knee joint [id number] 83923 M17.11 Health Concerns Section Related Observation LastModified by Organization Detai ls LastModified Time None Recorded Concern Status LastModified by Organization Details LastModified Time None Recorded Advance Directives Directive None Recorded Payers Encounter Date Sequence Insurance Name Policy Number Policy [place] Covered Member ID [place] Member ID Guarantor Name 04/27/2023 1 [place] Qi P Nolberto [id number] Qi P Nolberto 04/27/2023 2 [employer] - [employer] BENEFIT PLAN (POS II) [id number] Qi P Nolberto [id number] Qi P Nolberto 06/08/2023 1 [place] Qi P Nolberto [id number] Qi P Nolberto 06/08/2023 2 [employer] - [employer]IL [employer] BENEFIT PLAN (POS II) [id number] Qi P Nolberto [id number] Qi P Nolberto 06/25/2023 1 [place] Qi P Nolberto [id number] [id number] Qi P Nolberto 06/25/2023 2 [employer] - [employer]IL [employer] BENEFIT PLAN (POS II) [id number] Qi P Nolberto [id number] Qi P Nolberto 08/29/2023 1 [place] Qi P Nolberto [id number] [id number] Qi P Nolberto 08/29/2023 2 [employer] - [employer]IL [employer] BENEFIT PLAN (POS II) [id number] Qi [employer] [id number] Qi [employer] 10/08/2023 1 [place] Qi [employer] [id number] [id number] [employer] 10/08/2023 2 [employer] - [employer] BENEFIT PLAN (POS II) [id number] Qi Arv[employer]u [id number] Qi [employer] Notes Date Note Type Note Provider Name and Address Organization Details Recorded Time 04/27/2023 text/html Patient returns. She is an 83-year-old female referred by Dr. Bowles doctor for evaluation of her right knee. She has at least moderate lateral compartment osteoarthritis of the right knee and mild patellofemoral arthritis on x-rays that she brought in with her. AP stress view showed narrowing of lateral compartment 4 mm and the tunnel view showed narrowing of lateral compartment 2 mm. On the lateral view there is a longitudinal E oriented calcification 3 cm in length 8 mm in diameter anterior to posterior which I believe is a segment of calcified popliteal artery. Her chief complaint is lateral knee pain. She had a cortisone shot under ultrasound guidance April 04, 3 weeks ago and she did not get any relief from this. She states she normally gets at least 2 weeks of relief. She cannot take nonsteroidal anti-inflammatory medications because of sensitive stomach. If she takes an Advil or Aleve for example she has severe heartburn associated this. Her past medical history includes history of breast cancer which is in remission. She takes anastrozole 1 mg daily. She underwent total shoulder arthroplasty July [address] Brito and has done very well with that and is very pleased with her result. Her last hemoglobin A1c was 5.6. She replied reports her heart races with codeine and she has skin blistering from adhesive tape. She had 2 back surgeries 1 in 1997 and 1 in 2017. Bilateral breast surgeries in 2021. She has had series of Supartz injections in October of 2022 into the right knee and prior cortisone shots right in February 15 , August of 2022 and December 17. Matt Hernández MD [address] [place] [address], [facility] [address], [place], [address], [facility] 04/29/2023 18:04:20 OBGyn Episode No OBEpisode recorded.
--- OUTSIDE RECORDS SUMMARY | 2025-03-31 10:45 | XMS_ITS | Clinical Summary ---
Author Organization [facility] [place] [facility] Address [address] [place] [address] Care Team Providers Care Healthcare Advisory Services Manager Name Role Phone Evette Villanueva Primary Care Provider [phone] Allergies Active Allergy Reactions Criticality Noted Date Comments Adhesive Other (See comments) Low 10/21/2013 Takes my skin off ; however paper tape is ok Codeine Itching Low 03/04/2013 TACHYCARDIA Nsaids (Non-Steroidal Anti-Inflammatory Drug) Stomach upset Low 12/26/2016 Pravastatin Muscle pain Medium 07/05/2016 Procaine Other (See comments) Low 03/04/2013 blister Medications amLODIPine (NORVASC) 5 mg tabletIndications :hypertension Take 1 tablet (5 mg total) by mouth nightly 0 Active cholecalciferol (VITAMIN D-3) 25 mcg (1,000 unit) tabletIndications :Vitamin D Deficiency Take 1 tablet (1,000 Units total) by mouth every morning 6 Active escitalopram (LEXAPRO) 20 mg tabletIndications :Anxiety with Depression Take 1 tablet (20 mg total) by mouth nightly 6 Active furosemide (LASIX) 20 mg tabletIndications :hypertension Take 1 tablet (20 mg total) by mouth every other day 0 Active lovastatin (MEVACOR) 20 mg tabletIndications :hyperlipidemia Take 1 tablet (20 mg total) by mouth nightly [address] (PROTONIX) 40 mg EC tabletIndications :Treatment of Non-Bleeding Gastric Disorder,reflux Take 1 tablet (40 mg total) by mouth every morning 9 Active anastrozole (ARIMIDEX) 1 mg tabletIndications :metastatic breast carcinoma Take 1 tablet (1 mg total) by mouth nightly 2 Active meclizine (ANTIVERT) 25 mg tabletIndications :Vertigo Take 1 tablet (25 mg total) by mouth as needed for dizziness 2 Active rOPINIRole (REQUIP) 0.25 mg tabletIndications :Restless Legs Syndrome Take 1 tablet (0.25 mg total) by mouth nightly 4 Active spironolactone (ALDACTONE) 50 mg tabletIndications :hypertension Take 1 tablet (50 mg total) by mouth every morning Active polyethylene glycol 3350 (MIRALAX ORAL)Indications: constipation Take 1 Dose by mouth as needed (constipation) Active CALCIUM ORALIndications:s upplement Take 1 tablet by mouth 2 (two) times a day Active alendronate (FOSAMAX) 70 mg tabletIndications :Post-Menopausal Osteoporosis Take 1 tablet (70 mg total) by mouth every 7 days Take in the morning with a full glass of water, on an empty stomach, and do not take anything else by mouth or lie down for the next 30 min. 4 Active aspirin 81 mg enteric coated tabletIndications :prevention of thrombosis,heart health Take 1 tablet (81 mg total) by mouth nightly 4 Active aspirin 81 mg enteric coated tabletIndications :Deep Vein Thrombosis Prevention Take 1 tablet (81 mg total) by mouth 2 (two) times a day for 14 days 28 tablet 4 Active docusate sodium (COLACE) 100 mg capsuleIndication s:constipation Take 1 capsule (100 mg total) by mouth 2 (two) times a day 60 capsule 4 Active acetaminophen 500 mg capsuleIndication s:Pain Take 2 capsules (1,000 mg total) by mouth every 6 (six) hours 120 tablet 4 Active oxyCODONE (ROXICODONE) 5 mg immediate release tabletIndications :Pain Take 1 tablet (5 mg total) by mouth every 6 (six) hours as needed for pain 40 tablet Active Hospital, Clinic, or Other Facility Administered Medication Ordered Dose Route Frequency Start Date End Date Status BUPivacaine HCl (MARCAINE) 0.5 % (5 mg/mL) injection 6 mLIndications:Troc hanteric bursitis of right hip 6 mL One-Time Injection 03/25/2025 03/25/2025 Ended triamcinolone (KENALOG-80) 80 mg/mL injection 80 mgIndications:Troc hanteric bursitis of right hip 80 mg intra-artic One-Time Injection 03/25/2025 03/25/2025 Ended Active Problems Problem Noted Date Diagnosed Date Gait abnormality 11/25/2024 Dizziness and giddiness 11/25/2024 Ataxia 11/01/2024 S/P reverse total shoulder arthroplasty, right 0 08/08/2024 Rotator cuff arthropathy of right shoulder 07/10 Rotator cuff tear arthropathy, right 05/19/2024 S/P total knee arthroplasty, right 04/09/2024 Pure hypercholesterolemia, unspecified Presence of right artificial knee joint 03/12/20 Nonrheumatic mitral (valve) prolapse 03/12/2024 Gastro-esophageal reflux disease without esophag itis 03/12/2024 Primary osteoarthritis of right knee 03/11/2024 Posterior rhinorrhea 02/15/2024 Multinodular goiter 02/15/2024 Low back strain 02/15/2024 Lymphedema 02/15/2024 Low back pain 02/15/2024 Localized osteoarthrosis 02/15/2024 Hyperglycemia 02/15/2024 Herpes simplex type 1 infection 02/15/2024 Goiter 02/15/2024 Fracture of lower leg 02/15/2024 Cramp in limb 02/15/2024 Closed fracture of upper end of tibia 02/15/2024 Chronic neck pain 02/15/2024 Labyrinthitis 02/15/2024 Acute sinusitis 02/15/2024 Rotator cuff tear arthropathy of right shoulder 12/18/2023 Right hip pain 10/16/2023 Trochanteric bursitis, right hip 10/09/2023 Osteoarthritis of right knee 10/07/2023 Osteoarthritis of left knee 08/29/2023 Anterior knee pain 06/12/2023 Arthralgia of right knee 04/27/2023 Gastroenteritis 10/06/2022 Balance problem 09/04/2022 S/P reverse total shoulder arthroplasty, left Depression 08/02/2022 Anxiety 08/02/2022 Osteoarthritis of left glenohumeral joint 2021 Overview (03/28/2022): Added automatically from request for surgery [id number] Bilateral primary osteoarthritis of knee 022 Overview (02/15/2024): Last Assessment & Plan: We discussed the risks, benefits and alternatives. The only thing proven to slow the progression of osteoarthritis is weight loss. Every pound lost relieves 4 to 6 pounds of stress across the knee. We discussed unloading braces. Formal physical therapy to help with flexibility, mobility and strength. We discussed TENS units. Nonsteroidal anti-inflammatories as well as Tylenol and pain medication and their side effects. We discussed steroid versus Visco supplement injection. We discussed eventual total knee arthroplasty. Steroid injected today Preapproval for viscosupplementation Cannot take nonsteroidal anti-inflammatories orally Continue with Pennsaid topically Follow-up in 2 weeks for possible viscosupplementation injection Abnormality of right breast on screening mammogr am 12/08/2021 Anterior shoulder dislocation 08/04/2021 Vertigo, central 07/30/2020 Assessment & Plan (07/30/2020 1:43 PM CDT): Patient has longstanding history of episodic translational and rotational vertigo historically eased with meclizine and lasting only a few weeks with spontaneous improvement. She now presents with an ongoing persistent translational an rotational vertigo non responding to meclizine and associated with left tinnitus. Given the characteristic changes in her vertigo along with left tinnitus, I will pursue a MRI of the brain and IAC's with and without contrast to exclude structural aberration. An additional place her on a trial of diazepam 2.5 mg b.i.d. for vestibular suppression. I will see her back in 3 months time. Tinnitus aurium, left 07/30/2020 Assessment & Plan (07/30/2020 1:43 PM CDT): Given her tinnitus associated with persistent vertigo, I will obtain an MRI of the brain and IAC's with without contrast to exclude structural aberration, specifically an acoustic neuroma. Cervical radiculopathy 09/02/2019 Spinal stenosis of lumbar region 04/12/2018 History of lumbar fusion 04/12/2018 Lumbar spine instability 04/12/2018 Spondylolisthesis, grade 1 04/12/2018 Spinal instability 03/20/2018 Lumbosacral radiculopathy 01/10/2018 Paresthesia of right lower extremity 10/15/2017 Dyslipidemia 09/11/2016 HTN (hypertension) 09/11/2016 Benign thyroid adenoma 08/09/2016 Overview (07/30/2020): Transitioned From: Thyroid nodule DDD (degenerative disc disease), lumbar 05/02/20 16 Lumbar disc herniation 05/02/2016 Lumbar foraminal stenosis 05/02/2016 Overview (07/30/2020): Transitioned From: Neck pain Muscle spasms of neck 04/28/2016 Hyperlipidemia 01/25/2016 Acquired deformity of joint of foot 06/10/2012 Encounters Date Type Department Care Team Description 03/25/2025 10:00 AM CDT Office Visit [facility] [address] [place] [address] [address] [place] [address] Christy Hernandes NP Hip pain, right (Primary Dx); Trochanteric bursitis of right hip; Primary osteoarthritis of right hip 03/25/2025 9:30 AM CDT Ancillary Procedure Radiology - [address] [place] [address] [address] [place] [address] Hip pain, right from Last 3 Months Immunizations Immunization Administration Dates Next Due Influenza, Trivalent, High D ose, Split, Preservative Free, Intramuscular 09/15/2019,09/28/2018,09/08/2017,09/19,10/06/2015 Influenza, Trivalent, IM (MDV) 10/07/2015,2013,09/16/2013 Influenza, Unspecified 09/09/2017,2015,09/14/2014,09/16 Pneumococcal Conjugate PCV 13 10/11/2020, 015 Pneumococcal Conjugate, Unspecified 08/21/2005 Pneumococcal Polysaccharide PPV23 10/15/2016 Tdap 07/26/2021,02/08/2020,11/26/2009 ZOSTER LIVE 09/18/2017 Surgical History Surgery Date Site/Laterality Comments BACK SURGERY ANKLE SURGERY SHOULDER SURGERY GALLBLADDER SURGERY BREAST SURGERY Right BREAST BIOPSY 12/23/2021 Right Medical History Medical History Date Comments Hypertension Depression High cholesterol PONV (postoperative nausea and vomiting) Osteoarthritis GERD (gastroesophageal reflux disease) Breast cancer (HCC) right side p ost lumpectomy Mitral valve prolapse Sleep apnea Motion sickness Family History Medical History Relation Name Comments Bladder Cancer Brother 1 No Known Problems Brother 2 COPD Father Brain Aneurysm Mother Hypertension Mother Anesthesia problems Neg Hx Malig Hypertension Neg Hx Malig Hyperthermia Neg Hx Pseudochol deficiency Neg Hx Relation Name Status Comments Brother 1 Brother 2 Alive Father Mother Social History Tobacco Use Types Packs/Day Years Used Date Smoking Tobacco: Never Smokeless Tobacco: Never Tobacco Cessation:Counseling Given: No AUDIT-C Answer Date Recorded Q1: How often do you have a drink containing alc ohol? Monthly or less 07/10/2024 Q2: How many drinks containi ng alcohol do you have on a typical day when you are drinking? 1 or 2 07/10/2024 Q3: How often do you have si x or more drinks on one occasion? Never 07/10/2024 Personal Safety Answer Date Recorded Have you ever been in or are you currently in a harmful physical or emotional relationship or is someone making you feel afraid or unsafe? 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 Gender Identity Not on file Sexual Orientation Not on file Obstetrics History Last Filed Vital Signs Vital Sign Reading Time Taken Comments Blood Pressure 132/56 07/11/2024 8:27 AM CDT Pulse 71 07/11/2024 8:27 AM CDT Temperature 36.7 C (98.1 F) 07/11/2024 8:27 AM CDT Respiratory Rate 16 07/11/2024 8:27 AM CDT Oxygen Saturation 94% 07/11/2024 8:27 AM CDT Inhaled Oxygen Concentration - - Weight 84.8 kg (187 lb) 03/25/2025 10:21 AM CDT Height 167 cm (5' 5.75 ) 03/25/2025 10:21 AM CDT Body Mass Index 30.41 03/25/2025 10:21 AM CDT Plan of Treatment Health Maintenance Due Date Last Done Comments Depression Screening 1940 Hepatitis B Screening 1958 Well Visit 65+ 2005 Zoster Vaccine (1 of 2) 11/13/2017 09/18/2017 Covid-19 Vaccine (4 - 2023-2 5 season) 2024 09/20/2021, 01/20/2021, 12/23/2020 Fall Risk Assessment 07/11/2025 07/11/2024 Influenza Vaccine (Season Ended) 2025 09/15/2019, 09/28/2018, 09/09/2017, Additional history exists Osteoporosis Screening-Bone Density Scan 08/13/2026 08/13/2024, 05/15/2023 DTaP/Tdap/Td Vaccine (4 - Td or Tdap) 07/26/2031 07/26/2021, 02/08/2020, 11/26/2009 Pneumococcal vaccine 65+ Completed 020, 10/15/2016, 10/06/2015, Additional history exists Medical Devices Implanted Type Area Medical Transcription Supervisor Device Identifier Shelf Expiration Date Model / Serial / Lot [employer] Simplex P Radiopaque Full Dose Cement Bone Sterile 6191-1-010 - [id number] Implanted:Qty: 1 on 08/03/2022 by Sven Brito MD at [facility] Bone Cement Left: Shoulder [employer] [id number] 09/25/2024 6191-1-010 / / [employer] Simplex P Radiopaque Full Dose Cement Bone Sterile 6191-1-010 - [id number] Implanted:Qty: 1 on 08/03/2022 by Sven Brito MD at [facility] Bone Cement Left: Shoulder [employer] [id number] 6191-1-010 / / [email or web address] Aequalis 4.5mm 26mm Lock Multidirectional Self Tap Shoulder Screw Latex Free [id number] - [id number] Implanted:Qty: 1 on 08/03/2022 by Sven Brito MD at [facility] Screw Left: Shoulder [employer] [id number] / / [employer] Aequalis 4.5mm 35mm Lock Multidirectional Self Tap Shoulder Screw Latex Free [id number] - [id number] Implanted:Qty: 1 on 08/03/2022 by Sven Brito MD at [facility] Screw Left: Shoulder [employer] [id number] / / [employer] Aequalis 25mm Shoulder Long Post Baseplate Glenoid Downs [id number] - [id number] - [id number] Implanted:Qty: 1 on 08/03/2022 by Sven Brito MD at [facility] Left: Shoulder [employer] [id number] 10/18/2026 [id number] / [id number] / [employer] Aequalis 36mm Reverse Tilt Shoulder Sphere Glenoid Cocr 25mm [id number] - [id number] - [id number] Implanted:Qty: 1 on 08/03/2022 by Sven Brito MD at [facility] Left: Shoulder [employer] [id number] 08/25/2026 [id number] / [id number] / [employer] Stem Perform Sz 2 Plus Humeral Long [id number] - [id number] Implanted:Qty: 1 on 08/03/2022 by Sven Brito MD at [facility] Left: Shoulder [employer] 06/26/2027 [id number] / / [employer] Latitude 8-15mm Restrictor Elbow Restrictor Cement [id number] - [id number] - [id number] Implanted:Qty: 1 on 08/03/2022 by Sven Brito MD at [facility] Left: Shoulder [employer] [id number] 04/13/2027 [id number] / [id number] / [employer] Insert Perform 10 Deg Ret [id number] - [id number] Implanted:Qty: 1 on 08/03/2022 by Sven Brito MD at [facility] Left: Shoulder [employer] 08/15/2026 [id number] / / [employer] Attune Cemented Cruciate Retaining Knee Right 4 Component Femoral [id number] - [id number] Implanted:Qty: 1 on 03/11/2024 by Miguel Olivares MD at [facility] Right: Knee [employer] [id number] 06/25/2029 [id number] / / [id number] [employer] Attune S+ Cement Fix Bearing Knee 5 Baseplate Tibial [id number] - [id number] Implanted:Qty: 1 on 03/11/2024 by Miguel Olivares MD at [facility] Right: Knee [employer] [id number] 11/25/2033 [id number] / / [id number] [employer] Simplex P Full Dose Radiopaque Preblend Cement Bone Tobramycin 6197-9-001 - [id number] Implanted:Qty: 3 on 03/11/2024 by Miguel Olivares MD at [facility] Right: Knee [employer] [id number] 06/25/2025 6197-9-001 / / [id number] [employer] Insert Tibial Knee Fixed Rm Posterior Stabilized Attune 7mm Size 4 Polyethylene [id number] - [id number] Implanted:Qty: 1 on 03/11/2024 by Miguel Olivares MD at [facility] Right: Knee [employer] 04/25/2031 [id number] / / [id number] [employer] Aequalis 25mm Shoulder Long Post Baseplate Glenoid Downs Hxl167 - [id number] - [id number] Implanted:Qty: 1 on 07/10/2024 by Sven Brito MD at [facility] Right: Shoulder [employer] 06/12/2028 [id number] / [id number] / [employer] Aequalis 4.5mm 35mm Lock Multidirectional Self Tap Shoulder Screw Latex Free [id number] - [id number] Implanted:Qty: 2 on 07/10/2024 by Sven Brito MD at [facility] Right: Shoulder [employer] [id number] / / [employer] Aequalis Reversed 4.5mm 18mm Compression Glenoid Screw Baseplate [id number] - [id number] Implanted:Qty: 1 on 07/10/2024 by Sven Brito MD at [facility] Right: Shoulder [email or web address] [id number] / / [employer] Aequalis 36mm Reverse Tilt Shoulder Sphere Glenoid Cocr 25mm [id number] - [id number] - [id number] Implanted:Qty: 1 on 07/10/2024 by Sven Brito MD at [facility] Right: Shoulder [email or web address] 09/23/2028 [id number] / [id number] / [employer] Insert Perform 10 Deg Ret [id number] Hze2021 - [id number] - [id number] Implanted:Qty: 1 on 07/10/2024 by Sven Brito MD at [facility] Right: Shoulder [email or web address] 03/07/2029 [id number] / [id number] / [employer] Tray Stem Humeral Shoulder Reverse Long Size 2 Plus Perform [id number] Dwx2pl - [id number] - [id number] Implanted:Qty: 1 on 07/10/2024 by Sven Brito MD at [facility] Right: Shoulder [email or web address] 02/06/2029 [id number] / [id number] / Explanted Type Area Medical Transcription Supervisor Device Identifier Shelf Expiration Date Model / Serial / Lot [employer] Aequalis Reversed 4.5mm 18mm Compression Glenoid Screw Baseplate [id number] - [id number] Explanted:Qty: 1 on 07/10/2024 by Sven Brito MD at [facility] Right: Shoulder [email or web address] [id number] / / Procedures Procedure Name Priority Date/Time Associated Diagnosis Comments XR HIP RIGHT W PELVIS 2 OR 3 VIEWS Schedule Routine, Read Routine (OP Routine) 03/25/2025 10:08 AM CDT Hip pain, right [place] ARTHROCENTESIS ASPIR&/INJ MAJOR JT/BURSA W/O US Routine 03/25/2025 10:00 AM CDT Trochanteric bursitis of right hip from Last 3 Months Results * XR Hip Right 2 or 3 Views W Pelvis (03/25/2025 10:08 AM CDT) Anatomical Region Laterality Modality Lower Extremities, Hip, Pelvis Right C omputed Radiography 03/25/2025 10:2 7 AM CDT Impressions 03/25/2025 10:27 AM CDT Mild bilateral hip osteoarthritis. Electronically signed by: Davian Webber M.D. Narrative 03/25/2025 10:27 AM CDT EXAMINATION: XR HIP RIGHT 2 OR 3 VIEWS W PELVIS HISTORY: Hip pain FINDINGS: 2 views of the right hip and pelvis were performed with comparison made to 02/15/2024. Lower lumbar spine fusion instrumentation is again noted. There is mild bilateral hip osteoarthritis. There is left gluteal calcific tendinitis. There is no acute fracture of the right hip or the pelvis. Procedure Note Davian Webber MD PhD - 03/25/2025 EXAMINATION: XR HIP RIGHT 2 OR 3 VIEWS W PELVIS HISTORY: Hip pain FINDINGS: 2 views of the right hip and pelvis were performed with comparison made to 02/15/2024. Lower lumbar spine fusion instrumentation is again noted. There is mild bilateral hip osteoarthritis. There is left gluteal calcific tendinitis. There is no acute fracture of the right hip or the pelvis. IMPRESSION: Mild bilateral hip osteoarthritis. Electronically signed by: Davian Webber M.D. us Christy Hernandes NP IMG XR PROCEDURES Final R esult * MI ARTHROCENTESIS ASPIR&/INJ MAJOR JT/BURSA W/O US (03/25/2025 10:00 AM CDT) Narrative Christy Hernandes NP - 03/25/2025 10:00 AM CDT Christy Hernandes NP 03/25/2025 11:02 AM Large Joint Injection: R greater trochanteric bursa Performed by: Christy Hernandes NP Authorized by: Christy Hernandes NP Large Joint Injection/Aspiration: Consent Given by: Patient Site marked: the procedure site was marked Timeout: prior to procedure the correct patient, procedure, and site was verified Verbal consent obtained: Yes Written consent obtained: Yes Supporting Documentation: Indications: Pain Procedure Details: Location: Hip Site: R greater trochanteric bursa Prep: patient was prepped and draped in usual sterile fashion Prep: patient was prepped using a clean technique Needle Size: 21 G Approach: Lateral Ultrasound guided: No Fluroscopic guidance: No Medications: 6 mL BUPivacaine HCl 0.5 % (5 mg/mL); 80 mg triamcinolone 80 mg/mL Patient tolerance: Patient tolerated the procedure well with no immediate complications Christy Hernandes NP IN CLINIC/BEDSIDE ORDERAB LES Final Result from Last 3 Months Insurance [employer] MEDIC[employer] MEDICARE [employer] MEDICARE [employer] [facility] HMO Advance Directives For more information, please contact: [phone] * Full Code (Latest Code Status on File) Date Activated Date Inactivated Comments 07/10/2024 4:37 PM 07/11/2024 8:20 PM * Full Code Date Activated Date Inactivated Comments 03/11/2024 9:49 AM 03/12/2024 3:13 PM * Full Code Date Activated Date Inactivated Comments 08/03/2022 2:58 PM 08/04/2022 9:54 PM Care Teams Healthcare Advisory Services Manager Relationship Specialty Start Date End Date Evette Villanueva PA [address] [place] [id number] PCP - General Family Practice 01/18/24
--- OUTSIDE RECORDS SUMMARY | 2025-03-31 10:45 | XMS_ITS | Referral Summary ---
Author Organization [facility] Address [address] [place] [address] Care Team Providers Care Network Mgr Name Role Phone Evette Villanueva Primary Care Provider [phone] Encounters Date Type Department Care Team Description 03/25/2025 9:30 AM CDT Ancillary Procedure Radiology - [address] [place] [address] [address] [place] [address] Hip pain, right 03/25/2025 10:00 AM CDT Office Visit [facility] Orthopaedic Surgery [address] [place] [address] [address]nd [address] [place] [address] Christy Hernandes NP Hip pain, right (Primary Dx); Trochanteric bursitis of right hip; Primary osteoarthritis of right hip from Last 3 Months Allergies Active Allergy Reactions Criticality Noted Date [...] mouth every 6 (six) hours 120 tablet Active oxyCODONE (ROXICODONE) 5 mg immediate release [...] (03/28/2022): Added automatically from request for surgery [id number] Bilateral primary osteoarthritis of knee 022 Overview [...] Acquired deformity of joint of foot 06/10/2012 Immunizations Immunization Administration Dates Next Due Influenza, Trivalent, High D ose, Split, Preservative Free, Intramuscular 09/15/2019,09/28/2018,09/08/2017,09/19,10/06/2015 Influenza, Trivalent, IM (MDV) 10/07/2015,2013,09/16/2013 Influenza, Unspecified 09/09/2017,2015,09/14/2014,09/16 Pneumococcal Conjugate PCV 13 10/11/2020, 015 Pneumococcal Conjugate, Unspecified 08/21/2005 Pneumococcal Polysaccharide PPV23 10/15/2016 Tdap 07/26/2021,02/08/2020,11/26/2009 ZOSTER LIVE 09/18/2017 Social History Tobacco Use Types Packs/Day Years [...] on file 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 Bone Cement Left: Shoulder [employer] [id number] 09/25/2024 6191-1-010 / / [employer] Simplex P Radiopaque Full Dose Cement Bone Sterile 6191-1-010 - [id number] Implanted:Qty: 1 on 08/03/2022 by Sven Brito MD at [facility] Bone Cement Left: Shoulder [employer] [id number] 6191-1-010 / / [employer] Aequalis 4.5mm 26mm Lock Multidirectional Self Tap Shoulder Screw Latex Free [id number] - [id number] Implanted:Qty: 1 on 08/03/2022 by Sven Brito MD at [facility] Screw Left: Shoulder [employer] [id number] / / [employer] Aequalis 4.5mm 35mm Lock Multidirectional Self Tap Shoulder Screw Latex Free [id number] - [id number] Implanted:Qty: 1 on 08/03/2022 by Sven Brito MD at [facility] Screw Left: Shoulder [employer] [id number] / / [employer] Aequalis 25mm Shoulder Long Post Baseplate Glenoid Downs [id number] - [id number] - [id number] Implanted:Qty: 1 on 08/03/2022 by Sven Brito MD at [facility] Left: Shoulder [employer] [id number] 10/18/2026 [id number] / [id number] / [employer] Aequalis 36mm Reverse Tilt Shoulder Sphere Glenoid Cocr 25mm [id number] - [id number] - [id number] Implanted:Qty: 1 on 08/03/2022 by Sven Brito MD at [facility] Left: Shoulder [employer] [id number] 08/25/2026 [id number] / [id number] / [employer] Stem Perform Sz 2 Plus Humeral Long Dwx2pl - [id number] Implanted:Qty: 1 on 08/03/2022 by Sven Brito MD at [facility] Left: Shoulder [employer] 06/26/2027 [id number] / / [employer] Latitude 8-15mm Restrictor Elbow Restrictor Cement [id number] - [id number] - [id number] Implanted:Qty: 1 on 08/03/2022 by Sven Brito MD at [facility] Left: Shoulder [employer] [id number] 04/13/2027 STU925 / [id number] / [employer] Insert Perform 10 Deg Ret Apz1960 [id number] - [id number] Implanted:Qty: 1 on 08/03/2022 by Sven Brito MD at [facility] Left: Shoulder [employer] 08/15/2026 [id number] / / [employer] Attune Cemented Cruciate Retaining Knee Right 4 Component Femoral [id number] - [id number] Implanted:Qty: 1 on 03/11/2024 by Miguel Olivares MD at [facility] Right: Knee [employer] [id number] 06/25/2029 [id number] / / [id number] [employer] Attune S+ Cement Fix Bearing Knee 5 Baseplate Tibial [id number] - [id number] Implanted:Qty: 1 on 03/11/2024 by Miguel Olivares MD at [facility] Right: Knee [employer] [id number] 11/25/2033 [id number] / / [id number] [employer] Simplex P Full Dose Radiopaque Preblend Cement Bone Tobramycin 6197-9-001 - [id number] Implanted:Qty: 3 on 03/11/2024 by Miguel Olivares MD at [facility] Right: Knee [employer] [id number] 06/25/2025 6197-9-001 / / [id number] [employer] Insert Tibial Knee Fixed Rm Posterior Stabilized Attune 7mm Size 4 Polyethylene [id number] - [id number] Implanted:Qty: 1 on 03/11/2024 by Miguel Olivares MD at [facility] Right: Knee [employer] 04/25/2031 [id number] / / [id number] [employer] Aequalis 25mm Shoulder Long Post Baseplate Glenoid Downs [id number] - [id number] - [id number] Implanted:Qty: 1 on 07/10/2024 by Sven Brito MD at [facility] Right: Shoulder [employer] 06/12/2028 BSO131 / [id number] / [employer] Aequalis 4.5mm 35mm Lock Multidirectional Self Tap Shoulder Screw Latex Free [id number] - [id number] Implanted:Qty: 2 on 07/10/2024 by Sven Brito MD at [facility] Right: Shoulder [employer] MIL148 / / [employer] Aequalis Reversed 4.5mm 18mm Compression Glenoid Screw Baseplate Hgn113 - [id number] Implanted:Qty: 1 on 07/10/2024 by Svne Brito MD at [facility] Right: Shoulder [employer] [id number] / / [employer] Aequalis 36mm Reverse Tilt Shoulder Sphere Glenoid Cocr 25mm [id number] - [id number] - [id number] Implanted:Qty: 1 on 07/10/2024 by Sven Brito MD at [facility] Right: Shoulder [employer] 09/23/2028 [id number] / [id number] / [employer] Insert Perform 10 Deg Ret Ndb1986 [id number] - [id number] - [id number] Implanted:Qty: 1 on 07/10/2024 by Sven Brito MD at [facility] Right: Shoulder [employer] 03/07/2029 [id number] / [id number] / [employer] Tray Stem Humeral Shoulder Reverse Long Size 2 Plus Perform [id number] - [id number] - [id number] Implanted:Qty: 1 on 07/10/2024 by Sven Brito MD at [facility] Right: Shoulder [employer] 02/06/2029 [id number] / [id number] / Explanted Type Area Felt Hat Flanging Operator Device Identifier Shelf Expiration Date Model / Serial / Lot [employer] Aequalis Reversed 4.5mm 18mm Compression Glenoid Screw Baseplate [id number] - [id number] Explanted:Qty: 1 on 07/10/2024 by Sven Brito MD at [facility] Right: Shoulder [employer] [id number] / / Procedures Procedure Name Priority Date/Time Associated Diagnosis Comments XR HIP RIGHT W PELVIS 2 OR 3 VIEWS Schedule Routine, Read Routine (OP Routine) 03/25/2025 10:08 AM CDT Hip pain, right ND ARTHROCENTESIS ASPIR&/INJ MAJOR JT/BURSA W/O US Routine [...] IMG XR PROCEDURES Final R esult * ND ARTHROCENTESIS ASPIR&/INJ MAJOR JT/BURSA W/O US (03/25/2025 [...] the procedure well with no immediate complications us Christy Hernandes NP IN CLINIC/BEDSIDE ORDERAB LES Final Result from Last 3 Months Insurance [employer] MEDICARE MEDICARE [employer] MED[employer]ARE [employer] [facility] HMO Advance Directives For more information, please contact: [phone] * Full Code (Latest Code Status on File) Date Activated Date Inactivated Comments 07/10/2024 4:37 PM 07/11/2024 8:20 PM * Full Code Date Activated Date Inactivated Comments 03/11/2024 9:49 AM 03/12/2024 3:13 PM * Full Code Date Activated Date Inactivated Comments 08/03/2022 2:58 PM 08/04/2022 9:54 PM Care Teams Network Mgr Relationship Specialty Start Date End Date Evette Villanueva PA [address] [place] [address] PCP - General Family Practice 01/18/24
--- OUTSIDE RECORDS SUMMARY | 2025-03-31 10:45 | XMS_ITS | Clinical Summary ---
Author Organization [facility] Address [address] [place] [address] Phone Care Team Providers Care Assistant Speech Language Pathologist Name Role Phone Judy Muñiz DO Primary Care Provide r Pablo Starkey MD Unavailable [phone] Lionel Laboy DO Unavailable [phone] Noel Power MD Unavailable [phone] Allergies Active Allergy Reactions Criticality Noted Date Comments Medical Adhesive Remover Unknown Low 10/21/2013 Codeine Itching Low 03/04/2013 TACHYCARDIA TACHYCARDIA Nsaids Unknown Low 12/26/2016 Other reaction(s): GI Upset Pravastatin Other (see Comments) Medium 07/05/2016 Procaine Other (see Comments),Itching Low 03/04/2013 blister blister Medications Aspirin 81 MG Capsule Take 1 Tablet by mouth daily. 01/25/2016 Active amLODIPine (NORVASC) 5 MG Tablet Take 1 Tablet by mouth daily. 04/27/2020 Active B Complex Capsule Take 1 Capsule by mouth. 01/25/2016 Active Calcium Carbonate-Vitam in D 600-200 MG-UNIT Tablet Take 2 Tablets by mouth. Active cholecalciferol 25 mcg Tablet Take 1 Tablet by mouth daily. 10/02/2016 Active escitalopram (LEXAPRO) 20 MG Tablet Take 20 mg by mouth daily. 01/11/2016 Active furosemide (LASIX) 20 MG Tablet Take 1 Tablet by mouth daily. 06/07/2020 Active hydroCHLOROthia zide 25 MG Tablet TAKE 1 TABLET EVERY MORNING 04/06/2020 Active lovastatin (MEVACOR) 20 MG Tablet Take 1 Tablet by mouth daily. 05/22/2020 Active metaxalone (SKELAXIN) 800 MG Tablet Take 400 mg by mouth. 04/26/2020 Active Multiple Vitamin (multi-vitamins ) Tablet Take 1 Tablet by mouth daily. 01/25/2016 Active pantoprazole (PROTONIX) 40 MG Tablet Delayed Response Take 40 mg by mouth daily. 11/12/2019 Active potassium chloride SA (KLORCON M) 10 MEQ Tablet Controlled Release 05/22/2020 Active benzonatate (TESSALON) 100 MG Capsule Take 100 mg by mouth. 12/26/2021 Active Acetaminophen 500 MG Capsule Take 1,000 mg by mouth. 08/04/2022 Active spironolactone (ALDACTONE) 50 MG Tablet Take 50 mg by mouth daily. Active anastrozole (ARIMIDEX) 1 MG Tablet Take 1 Tablet by mouth daily 90 Tablet 3 11/13/2024 Active Active Problems Problem Noted Date Diagnosed Date Status post right breast lumpectomy 01/19/2022 Anterior shoulder dislocation 08/04/2021 Tinnitus aurium, left 07/30/2020 Overview (03/08/2022): Last Assessment & Plan: Given her tinnitus associated with persistent vertigo, I will obtain an MRI of the brain and IAC's with without contrast to exclude structural aberration, specifically an acoustic neuroma. Vertigo, central 07/30/2020 Overview (03/08/2022): Last Assessment & Plan: Patient has longstanding history of episodic translational [...] see her back in 3 months time. Cervical radiculopathy 09/02/2019 Lumbar spine instability 04/12/2018 History of lumbar fusion 04/12/2018 Spinal stenosis of lumbar region 04/12/2018 Spondylolisthesis, grade 1 04/12/2018 Depression 04/03/2018 Spinal instability 03/20/2018 Lumbosacral radiculopathy 01/10/2018 Sacroiliitis 12/17/2017 Paresthesia of right lower extremity 10/15/2017 Piriformis syndrome of left side 08/28/2017 Decreased hearing of both ears 07/10/2017 Dyslipidemia 09/11/2016 HTN (hypertension) 09/11/2016 Non-rheumatic mitral regurgitation 09/11/2016 Benign thyroid adenoma 08/09/2016 Overview (03/08/2022): Transitioned From: Thyroid nodule Transitioned From: Thyroid nodule DDD (degenerative disc disease), lumbar 05/02/20 16 Lumbar disc herniation 05/02/2016 Lumbar foraminal stenosis 05/02/2016 Overview (03/08/2022): Transitioned From: Neck pain Transitioned From: Neck pain Hyperlipidemia 01/25/2016 Acquired deformity of joint of foot 06/10/2012 Immunizations Immunization Administration Dates Next Due Covid-19, Mrna, Lnp-s, PF, 1 00 mcg/0.5 mL Dose (Moderna) 09/20/2021 Influenza Vaccine,unspecified Formulation 2016,09/20/2016 Pneumococcal Vaccine Adult - 23 Valent 6 TDAP Vaccine 07/26/2021,02/08/2020 Zoster Vaccine, live 09/19/2017 Social History Tobacco Use Types Packs/Day Years Used Date Smoking Tobacco: Never Smokeless Tobacco: Never Tobacco Cessation:Counseling Given: Not Answered Alcohol Use Standard Drinks/Week Comments Never 0 (1 standard drink = 0.6 oz pur e alcohol) PHQ-2 Answer Date Recorded Total Score - Questions 1-9 0 02/24 Comments Unknown Sex and Gender Information Value Date Recorded Sex Assigned at Not on file Legal Sex Female 10:34 PM CDT Gender Identity Not on file Sexual Orientation Not on file Last Filed Vital Signs Vital Sign Reading Time Taken Comments Blood Pressure 142/68 11/13/2024 10:51 AM SHEET [employer] JOURNEYMAN Pulse 71 11/13/2024 10:51 AM SHE[employer] JOURNEY[employer] Temperature 35.8 C (96.4 F) 11/13/2024 10:51 AM SHE[employer] JOURNEYMAN Respiratory Rate 18 11/13/2024 10:51 AM SHE[employer] JOURNEYMAN Oxygen Saturation 96% 11/13/2024 10:51 AM SHE[employer] JOURNEYMAN Inhaled Oxygen Concentration - - Weight 88.3 kg (194 lb 9.6 oz) 11/13/2024 10:51 AM SHE[employer] JOURNEYMAN Height 167.6 cm (5' 6 ) 11/13/2024 10:51 AM SHE[employer] JOURNEY[employer] Body Mass Index 31.41 11/13/2024 10:51 AM SHE[employer] JOURNEY[employer] Plan of Treatment Upcoming Encounters Date Type Department Care Team (Late st Contact Info) Description 05/14/2025 10:15 AM CDT Office Visit [facility] [address] [address] Noel Power MD [address] [place] [address] Health Maintenance Due Date Last Done Comments Hepatitis C Virus (HCV) Screening 1940 Discussion re Stopping Mammograms 2015 Influenza Immunization (#1) 2024 11/0 07/2022, 10/11/2021, 09/11/2020, Additional history exists SARS-COV-2 Immunization ( season) 2024 08/20/2023, 09/14/2022, 03/01/2022, Additional history exists Mammogram 01/09/2025 01/09/2024, 08/27, 12/23/2021 DEXA Bone Density 05/15/2025 05/15/2023, 03/21/2021 Td Immunization Every 10 Years (Adults With 1 Tdap) 07/26/2031 07/26/2021, 02/08/2020, 11/26/2009 DTaP/Tdap/Td Immunization Discontinued 2020, 02/08/2020, 11/26/2009 Zoster Immunization Completed 08/25/2022, 05/25/2022, 09/19/2017 Pneumococcal Immunization (50+ years) Completed 07/16/2023, 10/11/2020, 10/16/2016, Additional history exists Respiratory Syncytial Virus (RSV) Immunization (Adult) Completed 09/07/2023 Hepatitis B Immunization Aged Out No longer eligible based on patient's age to complete this topic Meningococcal Immunization (ACWY) Aged Out No longer eligible based on patient's age to complete this topic Rotavirus Immunization Aged Out No lo nger eligible based on patient's age to complete this topic Insurance MEDICARE [facility] Care Teams Assistant Speech Language Pathologist Relationship Specialty Start Date End Date Judy Muñiz DO [facility] [place] [address] PCP - General Family Medicine 01/10/22 Pablo Starkey MD [address] [place] [address] Colon & Rectal Surgery 01/10/22 Lionel Laboy DO [address] [place], [place] [id number] Consulting Physician Oncology 01/10/22 Noel Power MD [address] [place] [phone] Consulting Physician Oncology 11/20/24
== END 2025-03-31 09:56 | disposition home or self-care (01) ==
LOC: ANHIMG 09:59
PROVIDERS: PCP Physician Assistant Medical; Visit Provider Orthopaedic Surgery
DX: M25.551 Pain in right hip (principal)
CPT/HCPCS: 20610; 77002; J2003; J3301; Q9966